=== PATIENT | female | born 1980 | race Caucasian/White ===

== ENCOUNTER 2016-09-12 18:34 | Emergency (ER) | payer BC ==
[~2016-09-12] VITALS: Ht 154.9 cm; Wt 59.1 kg
[~2016-09-12 18:34] MED LIST: ENDOCET 5-3251 EACH PO; Motrin PO
[2016-09-12 19:45] LABS: HEMATOCRIT 41.8 % (36.0-46.0); MCH 27.8 PG (29.0-34.0); MCV 84.3 FL (83-99); MEAN PLAT.VOLUME 9.8 uM^3 (9.5-12.4); PLATELET COUNT 273 K/uL (156-360); RBC DIS.WIDTH-CV 12.3 % (11.8-14.6); RBC DIS.WIDTH-SD 37.4 % (39-53); RED BLOOD COUNT 4.96 M/uL (3.80-5.20); WHITE BLOOD COUNT 11.1 K/uL (4.1-10.2)
[2016-09-12 20:02] LABS: CHLORIDE 104 mEq/L (99-109); POTASSIUM 3.4 mEq/L (3.7-5.4); SODIUM 141 mEq/L (136-147)
[2016-09-12 20:04] LABS: GLUCOSE 102 mg/dL (70-99)
[2016-09-12 20:06] LABS: ANION GAP 13 MEQ/L (2-14); TOTAL BILIRUBIN 0.4 mg/dL (0.0-1.0)
[2016-09-12 20:08] LABS: ALKALINE PHOSPHATASE 70 IU/L (3-129); GFR ESTIMATE (CALCULATED) > 59 mL/min/
[2016-09-12 20:09] LABS: UREA NITROGEN (BUN) 13 mg/dL (9-23)
[2016-09-12 20:17] LABS: QUANTITATIVE HCG < 4.0 MIU/ML
[2016-09-12 20:33] LABS: ADD MIUA? YES; BILIRUBIN NEGATIVE; BLOOD LARGE; COLOR YELLOW ((YELLOW)); GLUCOSE (STRIP) NEGATIVE; KETONES 80; LEUKOCYTES TRACE; NITRITE NEGATIVE; PROTEIN (STRIP) 100; SPECIFIC GRAVITY 1.025 (1.000-1.030); UROBILINOGEN 0.2 MG/DL (0.2-1.0)
[2016-09-12 21:22] LABS: BACTERIA 1+ /HPF; CASTS NONE SEEN /LPF; EPITHELIAL CELLS 2+ /HPF; MUCUS TRACE /LPF; RED BLOOD CELLS TNTC /HPF (0-5); UCUL ADDED? NO; WHITE BLOOD CELLS 0-5 /HPF (0-5)
[2016-09-13] MEDS ORDERED: BENTYL10 MG PO (00:02)
[2016-09-13] MEDS ORDERED: ZOFRAN ODT4 MG PO (00:02)
[2016-09-13] MEDS ORDERED: ULTRAM50 MG PO (00:17)
[2016-09-13 00:35] VITALS: BP 134/80
== END 2016-09-13 00:37 | disposition home or self-care (01) ==
LOC: EME 18:34
DX: R11.10 Vomiting, unspecified (principal); R19.7 Diarrhea, unspecified; E86.0 Dehydration
CPT/HCPCS: 80053; 81003; 84702; 85027; 99281; 99284